=== PATIENT | male | born 1950 | race Caucasian/White ===

== ENCOUNTER 2018-06-18 11:11 | Emergency (ER) | payer OTHER ==
[2018-06-18 11:50] LABS: Absolute Lymphocytes (CBC) 0.3 K/uL (0.7-4.9); Absolute Monocytes 0.4 K/uL (0.1-1.3); Absolute Neutrophil 8.8 K/uL (1.8-8.0); Basophils % 0.3 % (0-1.3); Eosinophils % 0.6 % (0-4.4); Hematocrit 46.7 % (39.6-49.0); Lymphocytes % 3.4 % (15.3-44.8); MPV 7.4 fL (7.6-11.3); Monocytes % 4.2 % (3.3-12.3); RBC Red Blood Cell Count 4.96 M/uL (4.33-5.43)
[2018-06-18 12:10] LABS: Protime INR 1.05
[2018-06-18 12:11] LABS: ALT/SGPT 27 U/L (12-78); AST/SGOT 22 U/L (15-37); Albumin 3.8 g/dL (3.4-5.0); Alkaline Phosphatase 88 U/L (45-117); BUN Blood Urea Nitrogen 13 mg/dL (7-18); Bicarbonate 29 mmol/L (21-32); Bilirubin Direct 0.2 mg/dL (0-0.2); Bilirubin Total 0.8 mg/dL (0.2-1.0); Glucose Level 100 mg/dL (74-106); Lipase 146 U/L (73-393); Magnesium 2.3 mg/dL (1.8-2.4); NT PRO-BNP 31 pg/mL (<125); Potassium 4.2 mmol/L (3.5-5.1); Protein, Total 7.8 g/dL (6.4-8.2); Sodium Level 138 mmol/L (136-145); Troponin (Emerg Dept Use Only) < 0.02 ng/mL (0.0-0.045)
--- NOTE | 2018-06-18 12:11 | RAD REPORT ---
EXAM DESCRIPTION: CT - Head Brain Wo Cont - 06/18/2018 12:00 pm CLINICAL HISTORY: Dizziness;Numbness;Weakness Headache, hypertension and nausea COMPARISON: <Comparisons> TECHNIQUE: All CT scans are performed using dose optimization technique as appropriate and may inclu de automated exposure control or mA/KV adjustment according to patient size. FINDINGS: No intracranial hemorrhage, hydrocephalus or extra-axial fluid collection.No areas of brai n edema or evidence of midline shift. The paranasal sinuses and mastoids are clear. The calvarium is intact. IMPRESSION: No acute intracranial abnormality.
--- OUTSIDE RECORDS SUMMARY | 2018-06-18 12:23 | XMS REPORT | Continuity of Care Document ---
:1950 Author Organization Interface Problems Problem Status Onset Classification Date Comments Source Date Reported G20 Active [address] [facility] Active [facility] Medications Medication Details Route Status Patient Ordering Order Source Instructions Provider Date Allergies, Adverse Reactions, Alerts Substance Category Reaction Severity Reaction Status Date Comments Source type Reported Immunizations Immunization Date Given Site Status Last Updated Comments Source Results Order Results Value Reference Date Interpretation Comments Source Name Range Brain Brain EXAM: [facility] SPECT 06/12 - [facility] scan scan /2016 - [facility] [place] DATE: 06/12/2016 10:46 AM CDT Read by: Gabriela Denise MD Dictated Date/time: 06/12/16 15:46 Electronically Signed by: Gabriela Denise MD 06/12/16 15:49 FINAL REPORT INDICATION: Left side tremor, altered gait, evaluate for Parkinson disease COMPARISON: None TECHNIQUE: After intravenous administration of 4.4 mCi of I-123 Ioflupane, delayed SPECT images of the head were obtained at 4 hours post injection. FINDINGS: Physiologic tracer uptake in the bilateral putaminal and caudates is seen. There are no defects identified. The right striatum contributes 46% and the left striatum 54% of the remaining dopamine transporters function. The remainder of tracer distribution in background brain parenchyma is within normal limits. IMPRESSION: Normal INGA scan with no evidence of Parkinson disease. Vital Signs Vital Sign Value Date Comments Source Encounters Location Location Encounter Encounter Reason Attending ADM DC Status Source Details Type Number For Provider Date Date [facility] [id number] Eladio Cherry 06/12 06/13 [facility] Christiano Haro Jr /2016 [facility] Procedures Procedure Code Date Perfomer Comments Source
[2018-06-18 12:32] LABS: Blood Morphology Comment NOT SEEN (NOT SEEN); Platelet Estimate ADEQ
--- NOTE | 2018-06-18 13:28 | RAD REPORT ---
EXAM DESCRIPTION: RAD - Chest Single View - 06/18/2018 12:29 pm CLINICAL HISTORY: CHEST PAIN Chest pain. COMPARISON: Chest Single View dated 02/19/2016; Chest Single View dated 01/23/2016; Chest Single Vie w dated 01/20/2016; Chest Single View dated 01/19/2016 FINDINGS: Portable technique limits examination quality. The lungs are grossly clear. The heart is normal in size. No displaced fractures. IMPRESSION: No acute intrathoracic process suspected.
[2018-06-18] MEDS ORDERED: METOCLOPRAMIDE 10 MG/2mL INJ ONE (13:51)
[2018-06-18] MEDS ORDERED: DIPHENHYDRAMINE 50 MG/ML VIAL ONE (13:51)
--- NOTE | 2018-06-18 13:54 | ER ---
Nurse's Notes [facility] Name: Bernard Lynch Age: 68 yrs Sex: Male : 1950 Arrival Date: 06/18/2018 Time: 11:14 Bed 3 Private MD: Alexander Watters Diagnosis: Gastroenteritis;Headache Presentation: 06/18 11:17 Presenting complaint: Patient states: "I woke up this morning about 4:00, I was real aj1 nauseous, I drank some water. I went to a dental appointment at 9:30 and my blood pressure was 166/95. I've been steadily getting more nauseous as the morning goes on. I feel like I've eaten a 10 course meal and I'm short of breath and I have a bad headache". Transition of care: patient was not received from another setting of care. Onset of symptoms was June 18, 2018 at 04:00. Risk Assessment: Do you want to hurt yourself or someone else? Patient reports no desire to harm self or others. Initial Sepsis Screen: Does the patient meet any 2 criteria? No. Patient's initial sepsis screen is negative. Does the patient have a suspected source of infection? No. Patient's initial sepsis screen is negative. Care prior to arrival: None. 11:17 Method Of Arrival: Ambulatory aj1 11:17 Acuity: THAIS 2 aj1 Triage Assessment: 11:20 General: Appears. aj1 Historical: - Allergies: 11:20 No Known Allergies; aj1 - PMHx: 11:20 Anxiety; BPH; Depression; Hypertension; Hypothyroidism; aj1 - Immunization history:: Flu vaccine is up to date. - Social history:: Smoking status: Patient/guardian denies using tobacco. - Ebola Screening: : Patient denies travel to an Ebola-affected area in the 21 days before illness onset. Screenin:35 VAN Screening: Arm Drift: Patient shows no arm weakness. Patient is VAN negative. sv Visual Disturbance: No visual disturbance noted. Aphasia: No aphasia noted. Neglect: No neglect noted. 11:46 Abuse screen: Denies threats or abuse. Denies injuries from another. Nutritional sv screening: No deficits noted. Tuberculosis screening: No symptoms or risk factors identified. Fall Risk None identified. Assessment: 11:35 General: Appears in no apparent distress. uncomfortable, well groomed, well developed, sv Behavior is calm, cooperative, appropriate for age, last known normal was about 2300 last night, woke up this morning about 0500 with these symptoms.. Pain: Complains of pain in face and scalp Pain currently is 5 out of 10 on a pain scale. Quality of pain is described as dull, Pain began 0500 Is continuous. Neuro: Level of Consciousness is awake, alert, obeys commands, Oriented to person, place, time, situation, Marketing Recruiter are equal bilaterally Moves all extremities. Full function Speech is normal, Facial symmetry appears normal, Facial symmetry: tongue is midline, Reports dizziness, headache in entire numbness in palmar aspect of distal phalanx of left little finger, palmar aspect of distal phalanx of left ring finger, palmar aspect of distal phalanx of left middle finger, palmar aspect of distal phalanx of left index finger and palmar aspect of distal phalanx of left thumb since 1100 weakness in "all over" "foggy". Denies blurred vision diplopia. Cardiovascular: Patient's skin is warm and dry. Rhythm is sinus rhythm. Respiratory: Reports shortness of breath Airway is patent Respiratory effort is even, unlabored, Respiratory pattern is regular, symmetrical. GI: Abdomen is round Reports nausea. Derm: Skin is pink, warm \\T\\ dry. 12:30 Reassessment: Patient appears in no apparent distress at this time. No changes from hb previously documented assessment. Patient and/or family updated on plan of care and expected duration. Pain level reassessed. Patient is alert, oriented x 3, equal unlabored respirations, skin warm/dry/pink. 13:30 Reassessment: Patient appears in no apparent distress at this time. No changes from hb previously documented assessment. Patient and/or family updated on plan of care and expected duration. Pain level reassessed. Patient is alert, oriented x 3, equal unlabored respirations, skin warm/dry/pink. 14:30 Reassessment: Patient appears in no apparent distress at this time. No changes from hb previously documented assessment. Patient and/or family updated on plan of care and expected duration. Pain level reassessed. Patient is alert, oriented x 3, equal unlabored respirations, skin warm/dry/pink. Vital Signs: 11:20 BP 144 / 92; Pulse 87; Resp 18; Temp 98.1; Pulse Ox 100% on R/A; Pain 5/10; aj1 11:45 BP 136 / 89; Pulse 79 MON; Resp 12; Pulse Ox 99% ; sv 13:04 BP 132 / 88; Pulse 76 MON; Resp 16; Pulse Ox 100% ; sv 13:52 BP 137 / 99; Pulse 75; Resp 14; Pulse Ox 99% ; sv 11:45 Sinus Rhythm sv 13:04 Sinus Rhythm sv NIH Stroke Scale Scores: 11:35 NIHSS Score: 0 sv ED Course: 11:14 Patient arrived in ED. as 11:14 Alexander Watters DO is Private Physician. as 11:19 Triage completed. aj1 11:20 Arm band placed on. aj1 11:24 Matteo Kwok PA is PHCP. jr8 11:24 Jason Munguia MD is Attending Physician. jr8 11:26 Crystal Graham RN is Primary Nurse. sv 11:30 EKG done, by accredited pharmacy technician. reviewed by Jason Munguia MD. tc 11:35 Patient has correct armband on for positive identification. Bed in low position. Call sv light in reach. shelter monitor on. Pulse ox on. NIBP on. Door closed. Head of bed elevated. 11:40 Initial lab(s) drawn, by ED staff, sent to lab. Inserted saline lock: 20 gauge in right sv antecubital area, using aseptic technique. ,using aseptic technique. done by Pat RENDON Blood collected. 11:46 Nurse Practitioner and/or Physician Rehab/Pre Vocational Counselor to see patient. sv 11:[address] via stretcher. sv 12:01 CT Head Brain wo Cont In Process Unspecified. EDMS 12:29 X-ray completed. Portable x-ray completed in exam room. Patient tolerated procedure sw well. 12:30 XRAY Chest (1 view) In Process Unspecified. EDMS 13:52 Alexander Watters DO is Referral Physician. jr8 14:30 No provider procedures requiring assistance completed. IV discontinued, intact, hb bleeding controlled, No redness/swelling at site. Pressure dressing applied. Administered Medications: 13:45 Drug: Benadryl 25 mg Route: IVP; Site: right antecubital; sv 14:30 Follow up: Response: No adverse reaction hb 13:47 Drug: Reglan 10 mg Route: IVP; Site: right antecubital; sv 14:30 Follow up: Response: No adverse reaction hb Point of Care Testing: Blood Glucose: 11:40 Blood Glucose: 106 mg/dL; sv Ranges: Outcome: 13:53 Discharge ordered by MD. le 14:30 Discharged to home ambulatory. hb 14:30 Condition: stable 14:30 Discharge instructions given to patient, Instructed on discharge instructions, follow up and referral plans. medication usage, Demonstrated understanding of instructions, follow-up care, medications, Prescriptions given X 1. 14:43 Patient left the ED. hb NIH Stroke Scale - NIH Stroke Score Date: 06/18/2018 Time: 11:35 Total Score = 0 1a. Level of Consciousness (LOC) - 0(Alert) 1b. Level of Consciousness (LOC) (Year \\T\\ Age) - 0(Both) 1c. LOC Commands (Open \\T\\ Closes Eyes/Pleating Machine Operator) - 0(Both) 2. Best Gaze (Lateral Gaze Paresis) - 0(Normal) 3. Visual Field Loss - 0(No visual loss) 4. Facial Palsy - 0(Normal) 5a. Left Arm: Motor (10-second hold) - 0(No drift) 5b. Right Arm: Motor (10-second hold) - 0(No drift) 6a. Left Leg: Motor (5-second hold - always test supine) - 0(No drift) 6b. Right Leg: Motor (5-second hold - always test supine) - 0(No drift) 7. Limb Ataxia (finger/nose \\T\\ heel/donahue - test with eyes open) - 0(Absent) 8. Sensory Loss (pinprick arms/legs/face) - 0(Normal) 9. Best Language: Aphasia (description/naming/reading) - 0(No aphasia) 10. Dysarthria (speech clarity - read or repeat words) - 0(Normal) 11. Extinction and Inattention (visual/tactile/auditory/spatial/personal) - 0(No abnormality) Initials: sv Signatures: Dispatcher [employer] Jackelyn Zaldivar RN RN Crystal Chavez RN RN Edilia Clifford Josh, PA PA jr8 Monica Kelly, filling and stapling machine operator EKG Iqra Spaulding Heather, RN RN hb Corrections: (The following items were deleted from the chart) 11:50 11:35 General: Appears in no apparent distress. uncomfortable, well groomed, sv well developed, Behavior is calm, cooperative, appropriate for age, sv 11:52 11:35 Respiratory: Airway is patent Respiratory effort is even, unlabored, sv Respiratory pattern is regular, symmetrical, sv
--- NOTE | 2018-06-18 13:54 | EDPHYS ---
Physician Documentation [facility] Name: Bernard Lynch Age: 68 yrs Sex: Male : 1950 Arrival Date: 06/18/2018 Time: 11:14 Bed 3 Private MD: Alexander Watters Physician Jason Munguia HPI: 06/18 13:11 This 68 yrs old Male presents to ER via Ambulatory with complaints of High jr8 Blood Pressure, Nausea, Headache. 13:11 Onset: The symptoms/episode began/occurred acutely, yesterday. Modifying factors: The jr8 symptoms are aggravated by activity. Associated signs and symptoms: Pertinent positives: dyspnea, headache, nausea. The patient has not experienced similar symptoms in the past. The patient has not recently seen a physician. Patient stated that he had right sided headache yesterday with nausea. Stated that today when he woke up this morning felt nauseated and now has more of a global headache. Went to dentist this morning and noted to have elevated BP. Stated that he feels generally fatigued. Also had mild numbness and tingling to left finger tips . Historical: - Allergies: 11:20 No Known Allergies; aj1 - PMHx: 11:20 Anxiety; BPH; Depression; Hypertension; Hypothyroidism; aj1 - Immunization history:: Flu vaccine is up to date. - Social history:: Smoking status: Patient/guardian denies using tobacco. - Ebola Screening: : Patient denies travel to an Ebola-affected area in the 21 days before illness onset. ROS: 13:11 Eyes: Negative for injury, pain, redness, and discharge, ENT: Negative for injury, jr8 pain, and discharge, Neck: Negative for injury, pain, and swelling, Cardiovascular: Negative for chest pain, palpitations, and edema, Respiratory: Negative for shortness of breath, cough, wheezing, and pleuritic chest pain, Back: Negative for injury and pain, MS/Extremity: Negative for injury and deformity, Skin: Negative for injury, rash, and discoloration. 13:11 Constitutional: Positive for fatigue. 13:11 Abdomen/GI: Positive for nausea, Negative for abdominal pain, vomiting, diarrhea. 13:11 Neuro: Positive for headache, numbness, tingling, weakness. Exam: 13:11 Eyes: Pupils equal round and reactive to light, extra-ocular motions intact. Lids and jr8 lashes normal. Conjunctiva and sclera are non-icteric and not injected. Cornea within normal limits. Periorbital areas with no swelling, redness, or edema. ENT: Nares patent. No nasal discharge, no septal abnormalities noted. Tympanic membranes are normal and external auditory canals are clear. Oropharynx with no redness, swelling, or masses, exudates, or evidence of obstruction, uvula midline. Mucous membranes moist. Neck: Trachea midline, no thyromegaly or masses palpated, and no cervical lymphadenopathy. Supple, full range of motion without nuchal rigidity, or vertebral point tenderness. No Meningismus. Cardiovascular: Regular rate and rhythm with a normal S1 and S2. No gallops, murmurs, or rubs. Normal PMI, no JVD. No pulse deficits. Respiratory: Lungs have equal breath sounds bilaterally, clear to auscultation and percussion. No rales, rhonchi or wheezes noted. No increased work of breathing, no retractions or nasal flaring. Abdomen/GI: Soft, non-tender, with normal bowel sounds. No distension or tympany. No guarding or rebound. No evidence of tenderness throughout. Back: No spinal tenderness. No costovertebral tenderness. Full range of motion. Skin: Warm, dry with normal turgor. Normal color with no rashes, no lesions, and no evidence of cellulitis. MS/ Extremity: Pulses equal, no cyanosis. Neurovascular intact. Full, normal range of motion. Neuro: Awake and alert, GCS 15, oriented to person, place, time, and situation. Cranial nerves II-XII grossly intact. Motor strength 5/5 in all extremities. Sensory grossly intact. Cerebellar exam normal. Normal gait. 14:04 ECG was reviewed by the Attending Physician. jr8 Vital Signs: 11:20 BP 144 / 92; Pulse 87; Resp 18; Temp 98.1; Pulse Ox 100% on R/A; Pain 5/10; aj1 11:45 BP 136 / 89; Pulse 79 MON; Resp 12; Pulse Ox 99% ; sv 13:04 BP 132 / 88; Pulse 76 MON; Resp 16; Pulse Ox 100% ; sv 13:52 BP 137 / 99; Pulse 75; Resp 14; Pulse Ox 99% ; sv 11:45 Sinus Rhythm sv 13:04 Sinus Rhythm sv NIH Stroke Scale Scores: 11:35 NIHSS Score: 0 sv MDM: 11:24 Patient medically screened. [facility] 13:51 Data reviewed: vital signs, nurses notes, lab test result(s), EKG, radiologic studies, [facility] CT scan, plain films. Data interpreted: Pulse oximetry: on room air is 100 %. Interpretation: normal. Counseling: I had a detailed discussion with the patient and/or guardian regarding: the historical points, exam findings, and any diagnostic results supporting the discharge/admit diagnosis, lab results, radiology results, the need for outpatient follow up, a family practitioner, to return to the emergency department if symptoms worsen or persist or if there are any questions or concerns that arise at home. Response to treatment: the patient's symptoms have markedly improved after treatment. ED course: Patient had large diarrhea bowel movement while in ED. Feeling much better. Labs and imaging without acute or concerning finding. More then likely viral GI bug. Will send home on nausea medication and to f/u with PCP. Patient good with this plan . 06/18 11:24 Order name: Basic Metabolic Panel; Complete Time: 12:14 [facility] 06/18 11:24 Order name: CBC with Diff; Complete Time: 12:36 [facility] 06/18 11:24 Order name: LFT's; Complete Time: 12: [facility] 06/18 11:24 Order name: Magnesium; Complete Time: 12:14 06/18 11:24 Order name: NT PRO-BNP; Complete Time: 12:14 [facility] 06/18 11:24 Order name: PT-INR; Complete Time: 12:20 [facility] 06/18 11:24 Order name: Troponin (emerg Dept Use Only); Complete Time: 12:14 [facility] 06/18 11:24 Order name: XRAY Chest (1 view); Complete Time: 13:30 [facility] 06/18 11:24 Order name: Lipase; Complete Time: 12:14 [facility] 06/18 11:40 Order name: CT Head Brain wo Cont; Complete Time: 12:14 06/18 12:32 Order name: Manual Differential; Complete Time: 12:36 [facility] 06/18 13:24 Order name: Glucose, Ancillary Testing; Complete Time: 13:30 [facility] 06/18 11:24 Order name: EKG; Complete Time: 11:25 8 06/18 11:24 Order name: Cardiac monitoring; Complete Time: 06/18 11:24 Order name: EKG - Nurse/Tech; Complete Time: 06/18 11:24 Order name: IV Saline Lock; Complete Time: 06/18 11:24 Order name: Labs collected and sent; Complete Time: 06/18 11:24 Order name: O2 Per Protocol; Complete Time: 06/18 11:24 Order name: O2 Sat Monitoring; Complete Time: EC:04 Rate is 81 beats/min. Rhythm is regular, Normal Sinus Rhythm. QRS [place] is Normal. [place] jr8 interval is normal at 134 msec. QRS interval is normal at 74 msec. QT interval is normal at 415 msec. No Q waves. T waves are Normal. No ST changes noted. Clinical impression: Normal ECG and No evidence of ischemia. Interpreted by me. Reviewed by me. Administered Medications: 13:45 Drug: Benadryl 25 mg Route: IVP; Site: right antecubital; sv 14:30 Follow up: Response: No adverse reaction hb 13:47 Drug: Reglan 10 mg Route: IVP; Site: right antecubital; sv 14:30 Follow up: Response: No adverse reaction hb Point of Care Testing: Blood Glucose: 11:40 Blood Glucose: 106 mg/dL; sv Ranges: Critical Glucose Levels:Adult <50 mg/dl or >400 mg/dl <40 mg/dl or >180 mg/dl Disposition: 06/18/18 13:53 Discharged to Home. Impression: Gastroenteritis, Headache. - Condition is Stable. - Discharge Instructions: Migraine Headache. - Prescriptions for Zofran 4 mg Oral Tablet - take 1 tablet by ORAL route every 12 hours As needed; 20 tablet. - Medication Reconciliation Form, Thank You Letter, Antibiotic Education, Prescription Opioid Use form. - Follow up: Alexander Watters DO; When: 2 - 3 days; Reason: Recheck today's complaints, Continuance of care, Re-evaluation by your physician. - Problem is new. - Symptoms have improved. NIH Stroke Scale - NIH Stroke Score Date: 06/18/2018 Time: 11:35 Total Score = 0 1a. Level of Consciousness (LOC) - 0(Alert) 1b. Level of Consciousness (LOC) (Year \T\ Age) - 0(Both) 1c. LOC Commands (Open \T\ Closes Eyes/Manager Cardiac Cath) - 0(Both) 2. Best Gaze (Lateral Gaze Paresis) - 0(Normal) 3. Visual Field Loss - 0(No visual loss) 4. Facial Palsy - 0(Normal) 5a. Left Arm: Motor (10-second hold) - 0(No drift) 5b. Right Arm: Motor (10-second hold) - 0(No drift) 6a. Left Leg: Motor (5-second hold - always test supine) - 0(No drift) 6b. Right Leg: Motor (5-second hold - always test supine) - 0(No drift) 7. Limb Ataxia (finger/nose \T\ heel/donahue - test with eyes open) - 0(Absent) 8. Sensory Loss (pinprick arms/legs/face) - 0(Normal) 9. Best Language: Aphasia (description/naming/reading) - 0(No aphasia) 10. Dysarthria (speech clarity - read or repeat words) - 0(Normal) 11. Extinction and Inattention (visual/tactile/auditory/spatial/personal) - 0(No abnormality) Initials: Addendum: 06/23/2018 10:36 Co-signature as Attending Physician, Jason Munguia MD I agree with the kdr assessment and plan of care. Signatures: Dispatcher [employer] EDMS Jackelyn Walter RN RN aj1 Crystal Graham RN RN Jason Munguia MD MD [facility] Matteo Kwok PA PA jr8 Pat Vasquez RN RN Corrections: (The following items were deleted from the chart) 06/18 13:53 13:53 06/18/2018 13:53 Discharged to Home. Impression: Gastroenteritis. jr8 Condition is Stable. Forms are Medication Reconciliation Form, Thank You Letter, Antibiotic Education, Prescription Opioid Use. Follow up: Alexander Watters; When: 2 - 3 days; Reason: Recheck today's complaints, Continuance of care, Re-evaluation by your physician. Problem is new. Symptoms have improved. jr8 14:43 13:53 06/18/2018 13:53 Discharged to Home. Impression: Gastroenteritis; hb Headache. Condition is Stable. Forms are Medication Reconciliation Form, Thank You Letter, Antibiotic Education, Prescription Opioid Use. Follow up: Alexander Watters; When: 2 - 3 days; Reason: Recheck today's complaints, Continuance of care, Re-evaluation by your physician. Problem is new. Symptoms have improved. jr8
[2018-06-18 15:31] VITALS: TEMP 98.1
[2018-06-18 15:34] VITALS: BP 137/99; O2SAT 99
--- NOTE | 2018-06-19 06:45 | EKG ---
Test Date: 2018-06-18 Test Time: 11:25:27 Entry Level Financial Analyst: [employer] MEASUREMENT RESULTS: Intervals: Rate: 81 VA: 134 QRSD: 74 QT: 358 QTc: 415 [place]: P: 42 VA: 134 QRS: 34 T: 54 INTERPRETIVE STATEMENTS: Normal sinus rhythm Normal ECG Compared to ECG 10/29/2017 12:05:56 No significant changes Electronically Signed On 06-19-18 06:42:38 CDT by Adrian Mireles
== END 2018-06-18 14:43 | disposition home or self-care (01) ==
LOC: ER 11:11
DX: K52.9 Noninfective gastroenteritis and colitis, unspecified (principal); R51 Headache; F41.9 Anxiety disorder, unspecified; F32.9 Major depressive disorder, single episode, unspecified; E03.9 Hypothyroidism, unspecified; I10 Essential (primary) hypertension
CPT/HCPCS: 93005; 85025; 80048; 36415; 83735; 85610; 82962; 80076; 84484; 83690; 83880; 70450; 71045; 96375; 96374; 99285; J2765

== ENCOUNTER 2019-01-08 22:32 | Emergency (ER) | payer OTHER ==
[2019-01-08] MEDS ORDERED: ONDANSETRON 4 MG (ODT) TAB ONE (23:02)
[2019-01-08] MEDS ORDERED: IPRATROPIUM BROM 0.5MG/2.5ML ONE (23:02)
[2019-01-08] MEDS ORDERED: ALBUTEROL 2.5 MG/3 ML NEB SOL ONE (23:02)
--- NOTE | 2019-01-08 23:44 | EDPHYS ---
Physician Documentation [facility] Name: Bernard Lynch Age: 68 yrs Sex: Male : 1950 Arrival Date: 01/08/2019 Time: 22:37 Bed 8 Private MD: ED Physician Ángel Monique HPI: 01/08 23:30 This 68 yrs old Male presents to ER via Ambulatory with complaints of tw4 Congestion, Fever, Headache, Cough. 23:30 The patient reports fever, not measured (subjective). Onset: The symptoms/episode tw4 began/occurred today. Modifying factors: there are no obvious modifying factors. Associated signs and symptoms: Pertinent positives: arthralgias, cough. The patient has not experienced similar symptoms in the past. Historical: - Allergies: 22:45 No Known Allergies; aa1 - Home Meds: 22:45 ropinirole 0.5 mg oral tab 1 tab daily [Active]; Flomax 0.4 mg oral cp24 1 cap once aa1 daily [Active]; venlafaxine 150 mg oral tr24 1 tab once daily [Active]; levothyroxine 50 mcg oral tab 1 tab once daily [Active]; Simvastatin Oral 1 tab once daily [Active]; - PMHx: 22:45 Anxiety; BPH; Depression; Hypertension; Hypothyroidism; RLS; aa1 - PSHx: 22:45 Hernia repair; aa1 22:46 rotator cuff repair; bone spur; aa1 - Immunization history:: Flu vaccine is up to date. - Social history:: Smoking status: Patient/guardian denies using tobacco. - Ebola Screening: : Patient denies exposure to infectious person Patient denies travel to an Ebola-affected area in the 21 days before illness onset. ROS: 23:30 Constitutional: Negative for fever, chills, and weight loss, Eyes: Negative for injury, tw4 pain, redness, and discharge, Cardiovascular: Negative for chest pain, palpitations, and edema, Respiratory: Negative for shortness of breath, cough, wheezing, and pleuritic chest pain, Abdomen/GI: Negative for abdominal pain, nausea, vomiting, diarrhea, and constipation, Back: Negative for injury and pain, MS/Extremity: Negative for injury and deformity, Skin: Negative for injury, rash, and discoloration. Exam: 23:30 Constitutional: This is a well developed, well nourished patient who is awake, alert, tw4 and in no acute distress. Head/Face: Normocephalic, atraumatic. Chest/axilla: Normal chest wall appearance and motion. Nontender with no deformity. No lesions are appreciated. Cardiovascular: Regular rate and rhythm with a normal S1 and S2. No gallops, murmurs, or rubs. Normal PMI, no JVD. No pulse deficits. Respiratory: Lungs have equal breath sounds bilaterally, clear to auscultation and percussion. No rales, rhonchi or wheezes noted. No increased work of breathing, no retractions or nasal flaring. Abdomen/GI: Soft, non-tender, with normal bowel sounds. No distension or tympany. No guarding or rebound. No evidence of tenderness throughout. Back: No spinal tenderness. No costovertebral tenderness. Full range of motion. MS/ Extremity: Pulses equal, no cyanosis. Neurovascular intact. Full, normal range of motion. Neuro: Awake and alert, GCS 15, oriented to person, place, time, and situation. Cranial nerves II-XII grossly intact. Motor strength 5/5 in all extremities. Sensory grossly intact. Cerebellar exam normal. Normal gait. Vital Signs: 22:46 BP 143 / 90; Pulse 80; Resp 18; Temp 97.2; Pulse Ox 99% on R/A; Weight 113.4 kg (R); aa1 Height 6 ft. 0 in. (182.88 cm) (R); Pain 2/10; 23:41 BP 121 / 85; Pulse 80; Resp 17 S; Pulse Ox 96% on R/A; cc3 22:46 Body Mass Index 33.91 (113.40 kg, 182.88 cm) aa1 MDM: 22:50 Patient medically screened. tw4 23:30 Differential diagnosis: viral Infection, bacterial infection, URI, bronchitis. Data tw4 reviewed: vital signs, nurses notes. Data interpreted: Pulse oximetry: Interpretation: normal. Counseling: I had a detailed discussion with the patient and/or guardian regarding: the historical points, exam findings, and any diagnostic results supporting the discharge/admit diagnosis. Medication response: albuterol nebulizer treatment(s) markedly relieved the patient's wheezing. Response to treatment: and as a result, I will discharge patient. Special discussion: I discussed with the patient/guardian in detail that at this point there is no indication for admission to the hospital. It is understood, however, that if the symptoms persist or worsen the patient needs to return immediately for re-evaluation. 01/08 22:51 Order name: Flu tw4 Administered Medications: 23:06 Drug: Zofran 4 mg Route: PO; ak1 23:41 Follow up: Response: No adverse reaction ak1 23:06 Drug: Albuterol 2.5 mg Route: Inhalation; ak1 23:06 Drug: AtroVENT Aerosol 0.5 mg Route: Inhalation; ak1 Disposition: 01/08/19 23:43 Discharged to Home. Impression: Acute bronchitis. - Condition is Stable. - Discharge Instructions: Acute Bronchitis, Adult. - Prescriptions for Tessalon Perles 100 mg Oral Capsule - take 1 capsule by ORAL route every 8 hours As needed; 15 capsule. Albuterol Sulfate 90 mcg/actuation - inhale 1-2 puff by INHALATION route every 4-6 hours; 1 Inhaler. Guaifenesin AC 10- 100 mg/5 mL Oral Liquid - take 10 milliliter by ORAL route every 4 hours As needed; 240 milliliter. - Medication Reconciliation Form, Thank You Letter, Antibiotic Education, Prescription Opioid Use form. - Follow up: Private Physician; When: Upon discharge from the Emergency Department; Reason: Recheck today's complaints, Continuance of care. - Problem is new. - Symptoms have improved. Signatures: Dispatcher [employer] EDMS Ginger Braden RN RN aa1 Hailee Torres RN RN ak1 Ángel Monique MD MD tw4 Corrections: (The following items were deleted from the chart) 01/09 00:01 01/08 23:43 01/08/2019 23:43 Discharged to Home. Impression: Acute bronchitis. ak1 Condition is Stable. Forms are Medication Reconciliation Form, Thank You Letter, Antibiotic Education, Prescription Opioid Use. Follow up: Private Physician; When: Upon discharge from the Emergency Department; Reason: Recheck today's complaints, Continuance of care. Problem is new. Symptoms have improved. tw4
--- NOTE | 2019-01-08 23:44 | ER ---
Nurse's Notes [facility] Name: Bernard Lynch Age: 68 yrs Sex: Male : 1950 Arrival Date: 01/08/2019 Time: 22:37 Bed 8 Private MD: Diagnosis: Acute bronchitis Presentation: 01/08 22:41 Presenting complaint: Patient states: cough, congestion, headache, and fever of aa1 99.2-99.4 x 10 days. Transition of care: patient was not received from another setting of care. Onset of symptoms was December 29, 2018. Risk Assessment: Do you want to hurt yourself or someone else? Patient reports no desire to harm self or others. Initial Sepsis Screen: Does the patient meet any 2 criteria? No. Patient's initial sepsis screen is negative. Does the patient have a suspected source of infection? No. Patient's initial sepsis screen is negative. Care prior to arrival: None. 22:41 Method Of Arrival: Ambulatory aa1 22:41 Acuity: THAIS 4 aa1 Triage Assessment: 22:46 General: Appears in no apparent distress. comfortable, Behavior is calm, cooperative, aa1 appropriate for age. Historical: - Allergies: 22:45 No Known Allergies; aa1 - Home Meds: 22:45 ropinirole 0.5 mg oral tab 1 tab daily [Active]; Flomax 0.4 mg oral cp24 1 cap once aa1 daily [Active]; venlafaxine 150 mg oral tr24 1 tab once daily [Active]; levothyroxine 50 mcg oral tab 1 tab once daily [Active]; Simvastatin Oral 1 tab once daily [Active]; - PMHx: 22:45 Anxiety; BPH; Depression; Hypertension; Hypothyroidism; RLS; aa1 - PSHx: 22:45 Hernia repair; aa1 22:46 rotator cuff repair; bone spur; aa1 - Immunization history:: Flu vaccine is up to date. - Social history:: Smoking status: Patient/guardian denies using tobacco. - Ebola Screening: : Patient denies exposure to infectious person Patient denies travel to an Ebola-affected area in the 21 days before illness onset. Screenin:55 Abuse screen: Denies threats or abuse. Denies injuries from another. Nutritional ak1 screening: No deficits noted. Tuberculosis screening: No symptoms or risk factors identified. Fall Risk None identified. Assessment: 22:55 General: Appears in no apparent distress. Behavior is calm, cooperative. Pain: ak1 Complains of pain in headache. Neuro: Level of Consciousness is awake, alert, obeys commands, Oriented to person, place, time, situation, Eligibility Worker are equal bilaterally Moves all extremities. Full function Gait is steady, Speech is normal. Cardiovascular: Reports None. Respiratory: Airway is patent Respiratory effort is even, unlabored, Breath sounds with wheezes. GI: Reports nausea. : No signs and/or symptoms were reported regarding the genitourinary system. EENT: No signs and/or symptoms were reported regarding the EENT system. Derm: No signs and/or symptoms reported regarding the dermatologic system. Musculoskeletal: No signs and/or symptoms reported regarding the musculoskeletal system. 23:40 Reassessment: Patient appears in no apparent distress at this time. Patient and/or cc3 family updated on plan of care and expected duration. Pain level reassessed. Patient is alert, oriented x 3, equal unlabored respirations, skin warm/dry/pink. Vital Signs: 22:46 BP 143 / 90; Pulse 80; Resp 18; Temp 97.2; Pulse Ox 99% on R/A; Weight 113.4 kg (R); aa1 Height 6 ft. 0 in. (182.88 cm) (R); Pain 2/10; 23:41 BP 121 / 85; Pulse 80; Resp 17 S; Pulse Ox 96% on R/A; cc3 22:46 Body Mass Index 33.91 (113.40 kg, 182.88 cm) aa1 ED Course: 22:37 Patient arrived in ED. es 22:42 Triage completed. aa1 22:46 Arm band placed on right wrist. Patient placed in an exam room, on a stretcher. aa1 22:50 Ángel Monique MD is Attending Physician. tw4 22:52 Hailee Torres, JULIETA is Primary Nurse. ak1 22:55 Patient has correct armband on for positive identification. Bed in low position. Call ak1 light in reach. Side rails up X 1. 01/09 00:01 No provider procedures requiring assistance completed. Patient did not have IV access ak1 during this emergency room visit. Administered Medications: 01/08 23:06 Drug: Zofran 4 mg Route: PO; ak1 23:41 Follow up: Response: No adverse reaction ak1 23:06 Drug: Albuterol 2.5 mg Route: Inhalation; ak1 23:06 Drug: AtroVENT Aerosol 0.5 mg Route: Inhalation; ak1 Outcome: 23:43 Discharge ordered by . twDeann 01/09 00:01 Discharged to home ambulatory. ak1 Condition: good Discharge instructions given to patient, Instructed on discharge instructions, follow up and referral plans. no drinking with medication, no driving heavy equipment, medication usage, Demonstrated understanding of instructions, follow-up care, medications, Prescriptions given X 3. 00:01 Patient left the ED. ak1 Signatures: Ginger Braden RN RN [email or web address] Calista Dixon Amber, RN RN ak1 Ángel Monique MD MD tw4 Hortensia Cano cc3
[2019-01-09 01:08] VITALS: TEMP 97.2
[2019-01-09 01:09] VITALS: BP 121/85; O2SAT 96
== END 2019-01-09 00:01 | disposition home or self-care (01) ==
LOC: ER 22:32
DX: J20.9 Acute bronchitis, unspecified (principal); I10 Essential (primary) hypertension; F32.9 Major depressive disorder, single episode, unspecified; F41.9 Anxiety disorder, unspecified; E03.9 Hypothyroidism, unspecified
CPT/HCPCS: 87804; 99284